=== PATIENT | female | born 1960 | race Caucasian/White ===

== ENCOUNTER 2019-09-29 08:08 | Inpatient (IN) ==
[2019-09-29] MEDS ORDERED: ALBUTEROL 0.083% NEBU SOLN 3 ML VIAL INH PRN (10:55)
[2019-09-29] MEDS ORDERED: LORazepam 0.5 MG TAB PO PRN (10:55)
[2019-09-29] MEDS ORDERED: ONDANSETRON INJ 2 MG/ML 2 ML VIAL IV PRN (10:58)
[2019-09-29] MEDS ORDERED: [UNRECOGNIZED DRUG - OTHER] SCH (11:00)
--- NOTE | 2019-09-29 12:33 | XRay Report ---
SINGLE VIEW CHEST CLINICAL HISTORY: Pneumothorax status post lung biopsy. FINDINGS: An AP, portable, upright chest radiograph is compared to study dated 09/10/2019. Correlation is made with chest CT dated 09/07/2019. The cardiomediastinal silhouette is unremarkable. Emphysema and chronic interstitial thickening are similar to previous. A 2.6 cm nodule is again seen in the lef t lower lobe. No airspace consolidation or pleural effusion is identified. There is a small left apic al pneumothorax with approximately 12 mm of pleural separation. No right-sided pneumothorax is seen. The skeletal structures are osteopenic. There is a healed right-sided rib fracture. IMPRESSION: 1. Emphysema and a left lower lobe pulmonary lesion are similar to previous. 2. There is a small left apical pneumothorax. Electronically signed by: Marcus Quintero M.D. 09/29/2019 12:32 PM
--- NOTE | 2019-09-29 12:49 | CT Scan Report ---
CT guided FNA 1st lesion CLINICAL HISTORY: 2.1 x 1.5 cm solid nodule the super segment left lower lobe. COMPARISON STUDY: Chest CT 09/07/2019. PROCEDURE: The risks, benefits, and alternatives to the procedure were discussed with the patient. Wr itten informed consent was obtained. The patient was placed prone in the CT gantry, and the 2.1 cm n odule within the superior segment left lower lobe was localized with a grid on the skin surface. The skin was then marked. The left upper back was then prepped and draped in the usual sterile fashion. 1 % lidocaine was used for local anesthesia. The nodule was aspirated under CT guidance with 5 total pa sses utilizing 22-gauge spinal needles. After the first pass a tiny postprocedural pneumothorax was v isualized. The patient was asymptomatic. Dr. Dong then entered the CT department and discussion w as made that he would admit the patient and follow her accordingly with management specifically of th e pneumothorax. Dr. Dong and myself discussed with the patient that despite the pneumothorax, add itional FNA passes would be attempted as long as she was asymptomatic. The patient agreed and remaine d asymptomatic throughout the procedure. Specimens were reviewed by the pathologist and the first 4 p asses were prominently bloody material. The fifth pass demonstrated cellular material per pathologist . The patient tolerated the procedure well and left the department in satisfactory condition. The pat ient was then admitted under Dr. Dong and his team. Post procedural images demonstrate a small pneumothorax with small amount of alveolar hemorrhage surr ounding the pulmonary nodule. IMPRESSION: Completed fine-needle aspiration of a 2.1 cm nodule of the superior segment left lower lo be. The above report was generated using voice recognition software. It may contain grammatical, syntax o r spelling errors. Electronically signed by: Orestes Steele M.D. 09/29/2019 12:47 PM
[2019-09-29] MEDS: TRAMADOL HCL 50 MG TABLET PO PRN ×2 (16:17→20:20)
--- NOTE | 2019-09-29 16:28 | History & Physical Report ---
Date of Service September 29, 2019 Assessment & Plan (1) Pleuritic chest pain: Present on Admission?: Yes (2) COPD (chronic obstructive pulmonary disease): Present on Admission?: Yes (3) Iatrogenic pneumothorax: Had a long talk to the patient and her mother. I also discussed this case with Dr. Mahamed Osuna from pathology. I am hopeful that we have a tissue confirmation that this is a non-small cell lung carcinoma. If we do not get a diagnosis to complicate matters. Given the hypermetabolic activity of this mass in her history this certainly appears to be a non-small cell lung carcinoma. I am hopeful we can enroll her in our [employer] trial comparing sublobar resections versus SBRT. She currently does not need a chest tube. If she looks good tomorrow morning we will allow her to go home. Present on Admission?: Yes History of Present Illness Chief Complaint: pneumothorax Primary Care Provider: Michael Muhammad MD Jen Patel is a 59-year-old female with terrible lung function a long history of cigarette smoking who was found to have a hypermetabolic mass in the superior segment of her left lower lobe. She is undergone a work-up and it appears she qualifies for a clinical trial that we have open however we need tissue diagnosis. A navigational bronchoscopy was performed we did not get a tissue diagnosis of the peripheral mass, however her endobronchial ultrasound showed no evidence of metastatic disease in the mediastinal or hilar lymph nodes. Patient was set up for a needle biopsy under CT guidance with the understanding that she may have an iatrogenic pneumothorax because it was intraparenchymal although fairly peripheral. She understood. I explained that we may have to insert a chest tube or admit her. While the patient was in the CT scanner I presented and was there when Dr. Lyons did 5 separate biopsies. We finally got some suspicious cells in the last biopsy specimen. She had a small pneumothorax and I admitted her for observation. Is important to note that this patient has very poor lung function. She is not can to tolerate a pneumothorax of any consequence. We ordered a chest x-ray and this shows it is a small pneumothorax and she is stable clinically. We will continue her oxygen and admit her to the hospital. Had a long talk with the patient and her mother. Allergies Allergy/AdvReac Type Severity Reaction Status Date / Time adhesive Allergy Mild SKIN Verified 09/29/19 08:50 IRRITATION Home Medications Home Medications Medication Instructions Recorded Confirmed Type Oxygen Home #1 ea 06/17/19 09/28/19 History atorvastatin 20 mg tablet 40 mg PO QAM tab 06/17/19 09/29/19 History diclofenac sodium 50 mg 50 mg PO BID tab 06/17/19 09/29/19 History tablet,delayed release duloxetine 30 mg capsule,delayed 30 mg PO QAM cap 06/17/19 09/29/19 History release lorazepam 0.5 mg tablet 0.5 mg PO TID PRN #20 tab 06/17/19 09/29/19 History lorazepam 2 mg tablet 2 mg PO HS 06/17/19 09/29/19 History metformin 500 mg tablet,extended 500 mg PO BID #90 tab 06/17/19 09/29/19 History release 24 hr pantoprazole 40 mg tablet,delayed 40 mg PO QAM #30 tab 06/17/19 09/29/19 History release Trelegy Ellipta 1 inh INHALATION QAM 09/08/19 09/29/19 History ferrous sulfate 325 mg PO BID 09/08/19 09/29/19 History lisinopril 5 mg PO QAM 09/08/19 09/29/19 History metoprolol succinate 12.5 mg PO QAM 09/08/19 09/29/19 History prednisone 10 mg tablet 10 mg PO QAM #90 tab 09/28/19 09/29/19 Rx albuterol sulfate [ProAir HFA] 2 puff INHALATION BID 09/29/19 09/29/19 History bupropion HCl 200 mg PO BID 09/29/19 09/29/19 History Past Med/Surg History Social History (Updated 09/07/19 @ 10:56 by Jelly Marie RN) Preferred Language: Vietnamese Communication Ability: Effective Crosscutter Required: No Beliefs That Will Affect Care: None marital status: Single Current Living Situation: Alone current occupational status: disabled Feels Safe at Home: Yes Smoking Status: Former smoker Tobacco Type: cigarettes ; Age Started Using To bacco: 14 ; Age Quit Using Tobacco: 58 ; packs per day: 1 ; Cigarettes Per Day: 20 ; Number of Years Since Quit: 1 ; Second Hand Exposure: Yes ; Hx Alcohol Use: No Hx Substance Use: No Review of Systems Review of Systems: All systems reviewed & are unremarkable except as noted in HPI & below Patient has complained of chest pain since her CT-guided biopsy of her left lung mass however, her shortness of breath and cough is been unchanged. She is had really no other issues since my history and physical performed a in the last couple of weeks. She is quite anxious about this lung mass. Physical Exam Physical Exam: This is is an anxious appearing female who appears her stated age 59. She is wearing oxygen. She is complaining of pain in her left chest which is pleuritic. She is not hypoxic on 2 L. That is her baseline. She was glasses. Extra documents are intact. Sclera pale but anicteric. She has no new sleep flattening. Tongue is midline. Neck is supple. She has no neck vein distention. She has decreased breath sounds on both sides perhaps a bit more on the left than the right. She has no rub. She has regular treatment of her heart. Abdomen is obese soft nontender. She has no peripheral edema. She has no joint effusions. She has peripheral pulses which are palpable. Neurologically she is completely intact although anxious. Results & Data Vital Signs (Past 12 Hours) Vital Signs Temp Pulse Resp BP Pulse Ox 09/29/19 15:08 36.7 C 83 16 122/79 94 09/29/19 11:45 36.8 C 91 H 18 133/87 93 09/29/19 09:11 142/82 H 97 09/29/19 09:01 36.4 C L 94 H 22 142/82 H 97 Code Status & VTE Plan VTE Prophylaxis Plan VTE Prophylaxis will be ordered: Yes PG Care Time/CCT Total # of Minutes Spent Total Time Spent with Patient: Total time spent is greater than 50% in coordination of care (as documented) at patient's floor/unit and/or counseling patient:
[2019-09-29] MEDS: FERROUS SULFATE 325 MG TAB PO SCH (18:04)
[2019-09-29] MEDS: METFORMIN HCL ER 500 MG TABCR PO SCH (18:04)
[2019-09-29] MEDS: BuPROPion SR 100 MG TABCR PO SCH (20:21)
[2019-09-29] MEDS: DICLOFENAC SODIUM 25 MG TABDR PO SCH (20:21)
[2019-09-29] MEDS ORDERED: LORazepam 1 MG TAB PO SCH (21:00)
[2019-09-29] MEDS: ALBUTEROL HFA 8 GM INHALER INH SCH (21:28)
[2019-09-30] MEDS: TRAMADOL HCL 50 MG TABLET PO PRN ×2 (00:59→07:48)
--- NOTE | 2019-09-30 07:30 | XRay Report ---
XR chest 1V portable CLINICAL HISTORY: 59 years-old Female presenting with pneumothorax. TECHNIQUE: Portable upright AP view of the chest was obtained. COMPARISON: 09/29/2019. FINDINGS: Cardiomediastinal silhouette normal. Breast implants suggested. 2.4 cm nodule in the right midlung leigh spected. This correlates with the nodule in the superior segment of the left lower lobe evident on re cent PET/CT from July. An additional peripheral/subpleural opacity is noted more inferiorly in t he left lower lung, which corresponds with the underlying left lateral eighth rib fracture. No pleura l effusion or pneumothorax. Osseous structures normal. Upper abdomen normal. IMPRESSION: 1. Redemonstration of the superior segment left lower lobe lung nodule. 2. No radiographic evidence of pneumothorax allowing for portable technique. Electronically signed by: Darwin Jackman M.D. 09/30/2019 7:29 AM
[2019-09-30] MEDS: FERROUS SULFATE 325 MG TAB PO SCH (08:48)
[2019-09-30] MEDS: METFORMIN HCL ER 500 MG TABCR PO SCH (08:48)
[2019-09-30] MEDS: DICLOFENAC SODIUM 25 MG TABDR PO SCH (08:50)
[2019-09-30] MEDS: BuPROPion SR 100 MG TABCR PO SCH (08:50)
[2019-09-30] MEDS: ALBUTEROL HFA 8 GM INHALER INH SCH (08:54)
[2019-09-30] MEDS ORDERED: predniSONE 10 MG TABLET PO SCH (09:00)
[2019-09-30] MEDS ORDERED: DULOXETINE HCL 30 MG CAP PO SCH (09:00)
[2019-09-30] MEDS ORDERED: ATORVASTATIN 40 MG TAB PO SCH (09:00)
[2019-09-30] MEDS ORDERED: PANTOprazole 40 MG TAB PO SCH (09:00)
[2019-09-30] MEDS ORDERED: lisinopriL 5 MG TAB PO SCH (09:00)
[2019-09-30] MEDS ORDERED: METOPROLOL SUCC 25MG EXT REL TAB PO SCH (09:00)
[2019-09-30] MEDS ORDERED: ENOXAPARIN INJ 40 MG/0.4 ML SYR SQ SCH (09:00)
--- NOTE | 2019-09-30 10:39 | Discharge Summary ---
Date of Service September 30, 2019 Admission HPI Per Admitting Provider Jen Patel is a 59-year-old female with terrible lung function a long history of cigarette smoking who was found to have a hypermetabolic mass in the superior segment of her left lower lobe. She is undergone a work-up and it appears she qualifies for a clinical trial that we have open however we need tissue diagnosis. A navigational bronchoscopy was performed we did not get a tissue diagnosis of the peripheral mass, however her endobronchial ultrasound showed no evidence of metastatic disease in the mediastinal or hilar lymph nodes. Patient was set up for a needle biopsy under CT guidance with the understanding that she may have an iatrogenic pneumothorax because it was intraparenchymal although fairly peripheral. She understood. I explained that we may have to insert a chest tube or admit her. While the patient was in the CT scanner I presented and was there when Dr. Lyons did 5 separate biopsies. We finally got some suspicious cells in the last biopsy specimen. She had a small pneumothorax and I admitted her for observation. Is important to note that this patient has very poor lung function. She is not can to tolerate a pneumothorax of any consequence. We ordered a chest x-ray and this shows it is a small pneumothorax and she is stable clinically. We will continue her oxygen and admit her to the hospital. Had a long talk with the patient and her mother. Discharge Data Procedures Performed Operation Date: 09/29/19 09:[address] Scan Lung Biopsy - Osvaldo Dong MD, FACS Hospital Course (1) Iatrogenic pneumothorax: (2) COPD (chronic obstructive pulmonary disease): (3) Dependence on continuous supplemental oxygen: (4) Mass of lower lobe of left lung: Jen Patel is a 5-year-old female with very poor lung function who has a hypermetabolic mass in the superior segment of the left lower lobe which appears to be a non-small cell lung carcinoma. Patient is a candidate for a trial of sublobar resections versus SBRT. We have this trial available and are looking to enroll her into it. Navigational bronchoscopy was performed we did not get a diagnosis. And a bronchial ultrasound was performed earlier which showed no evidence of metastatic disease in her mediastinal lymph nodes. A needle biopsy was requested under CT guidance to get a diagnosis. This is required for entrance into this clinical trial. On 09/29/2019 the patient underwent a CT-guided biopsy by Dr. Sebastián Lyons. He did 5 separate passes the patient has small pneumothorax. We are waiting for cells but it appears we may have enough for diagnosis of non-small cell lung carcinoma. Patient had pain with this but it resolved. Her chest x-ray look quite good the following day. We observed her due to her poor lung function. She looked quite good this morning. She was discharged home one day after her biopsy and iatrogenic pneumothorax which was very small. I discussed this with the patient and her mother. I will see her back to go over final pathology and see about enrolling her in the [employer] trial.
== END 2019-09-30 11:00 | disposition home or self-care (01) | DRG 181 ==
LOC: ASU 08:08 → 3W 10:57

== ENCOUNTER 2019-11-22 05:43 | Inpatient (IN) ==
--- NOTE | 2019-11-18 13:26 | Anesthesiology Consultation ---
Date of Service November 18, 2019 Easy intubation for EBUS, Mac3 8.0 ETT. Grade 2 view. Assessment & Plan (1) Encounter for pre-operative examination: Chart Review Chart Review: Acceptable Risk for Surgery and Patient NOT seen in Pre Admission Testing Consults Requested none History Surgery Operation Date: 11/22/19 07:15 Proposed Procedures p Left Video-Assisted Thoracoscopy With Left Lower Lobe Wedge Resection and Lymph Node Biopsy, Possible Left Lower Lobectomy, With Mediastinal Lymphadenectomy - Osvaldo Dong MD, FACS Height/Weight Height: 5 ft 7 in Weight: 84.368 kg Allergies Allergy/AdvReac Type Severity Reaction Status Date / Time adhesive Allergy Mild SKIN Verified 11/18/19 11:02 IRRITATION Medications Home Medications Medication Instructions Recorded Confirmed Last Taken Oxygen Home #1 ea 06/17/19 10/11/19 Unknown atorvastatin 20 mg tablet 40 mg PO QAM tab 06/17/19 11/18/19 11/17/19 06:00 diclofenac sodium 50 mg 50 mg PO BID tab 06/17/19 11/18/19 11/17/19 06:00 tablet,delayed release duloxetine 30 mg capsule,delayed 30 mg PO QAM cap 06/17/19 11/18/19 11/17/19 06:00 release lorazepam 0.5 mg tablet 0.5 mg PO BID PRN #20 tab 06/17/19 11/18/19 11/17/19 06:00 lorazepam 2 mg tablet 2 mg PO HS 06/17/19 11/18/19 11/16/19 20:00 metformin 500 mg tablet,extended 500 mg PO BID #90 tab 06/17/19 11/18/19 11/16/19 06:00 release 24 hr pantoprazole 40 mg tablet,delayed 40 mg PO QAM #30 tab 06/17/19 11/18/19 11/17/19 06:00 release Trelegy Ellipta 1 inh INHALATION QAM 09/08/19 11/18/19 11/17/19 06:00 ferrous sulfate 325 mg PO BID 09/08/19 11/18/19 11/17/19 06:00 lisinopril 5 mg PO QAM 09/08/19 11/18/19 11/17/19 06:00 metoprolol succinate 12.5 mg PO QAM 09/08/19 11/18/19 11/17/19 06:00 prednisone 10 mg tablet 10 mg PO QAM #90 tab 09/28/19 11/18/19 11/17/19 06:00 albuterol sulfate [ProAir HFA] 2 puff INHALATION BID PRN 09/29/19 11/18/19 09/15/19 bupropion HCl 200 mg PO BID 09/29/19 11/18/19 11/17/19 06:00 albuterol sulfate 0.63 mg INHALATION QID 11/18/19 11/18/19 Unknown Past Medical History Medical History Anemia Anxiety and depression Breast cancer RT (RADIATION AND CHEMO) Chronic obstructive pulmonary disease Chronic steroid use "FOR BREATHING" Emphysema of lung Hyperlipidemia Hypertension NO MEDS Lung nodule On home oxygen therapy O2 AT 2L CONT. Prediabetes BORDERLINE-ORAL MEDS Past Family History Family History Father Lung cancer Cancer Stroke Mother Diabetes Family history of diabetes mellitus Grandmother Diabetes Aunt Cancer Grandmother (Maternal) Family history of diabetes mellitus Other Breast cancer Past Surgical History Surgical History H/O breast reconstruction RT BREAST History of appendectomy History of breast biopsy History of cardiac cath 6 YRS AGO? [facility] NO STENTS NEEDED-F/U PCP History of colonoscopy History of esophagogastroduodenoscopy (EGD) History of hysterectomy TOTAL History of mastectomy RT WITH RECONSTRUCTION History of tooth extraction Hx laparoscopic cholecystectomy S/P bronchoscopy with biopsy (09/13/19) 1. Endobronchial ultrasound with biopsy for staging. 2. Navigational bronchoscopy with biopsy. Dr. Dong 09/10/19 S/P hernia surgery ABDOMINAL HERNIA (3 SURGERIES) Social History Smoking Status: Former smoker tobacco type: cigarettes Smoking cigarettes per day: 20 Do You Dip or Chew Tobacco: No Smoking End Date: QUIT 07/21/18 Hx Alcohol Use: No Hx Substance Use: No substance use type: does not use Testing Laboratory Results Laboratory Tests 09/20/19 11/17/19 11/17/19 08:16 08:41 08:41 WBC 9.91 Hgb 12.6 Hct 39.2 Plt Count 303 PT 10.2 INR 1.0 APTT 11/17/19 08:41 WBC Hgb Hct Plt Count PT INR APTT 22.5 Electrocardiogram Date: 09/10/19 Findings: + NSR @ and + NSST changes Chest X-Ray Date: 11/17/19 Small L apical PNX (post biopsy)
[2019-11-22] MEDS ORDERED: LR 15ML/HR IV SCH (06:00)
[2019-11-22] MEDS ORDERED: SUCCINYLCHOLINE CHLORIDE 20 MG/ML 10 ML VIAL ONE (06:21)
[2019-11-22] MEDS ORDERED: fentaNYL citrate 100 MCG/2 ML VIAL ONE (06:21)
[2019-11-22] MEDS ORDERED: CISATRACURIUM BESYLATE IV SOLN 2 MG/ML 10 ML VIAL IV ONE (06:21)
[2019-11-22] MEDS ORDERED: DEXAMETHASONE SOD INJ 4 MG/ML VIAL ONE (06:21)
[2019-11-22] MEDS ORDERED: PROPOFOL IV EMULSION 10 MG/ML 20 ML VIAL IV ONE (06:21)
[2019-11-22] MEDS ORDERED: LIDOCAINE HCL 2% 2 ML VIAL/AMP(20MG/ML) INFIL ONE (06:21)
[2019-11-22] MEDS ORDERED: MIDAZOLAM HCL 1 MG/ML 2ML VIAL ONE (06:21)
[2019-11-22] MEDS ORDERED: ONDANSETRON INJ 2 MG/ML 2 ML VIAL ONE (06:21)
[2019-11-22] MEDS ORDERED: BUPIVACAINE 0.5 % 5 MG/1 ML MPF 30ML VIAL ONE (06:54)
[2019-11-22] MEDS ORDERED: SODIUM CHLORIDE 0.9% PF 50 ML VIAL ONE ×2 (06:54→06:56)
[2019-11-22] MEDS ORDERED: SODIUM CHLORIDE 0.9% INJ 10 ML VIAL ONE (06:54)
[2019-11-22] MEDS ORDERED: BUPIVACAINE LIPOSOME 1.3% 266 MG/20 ML VIAL ONE (06:54)
--- NOTE | 2019-11-22 07:23 | History & Physical Report ---
Date of Service November 22, 2019 Assessment & Plan (1) Mass of lower lobe of left lung: We have discussed this multiple times. She is nervous about it would like it removed and I feel we are dealing with a probable non-small cell lung carcinoma. Unfortunately we could not get a diagnosis. For this reason I would proceed with a sublobar resection today. We have discussed risks and benefits including not limited to, increasing oxygen dependence, increasing dyspnea on exertion, pneumonias, lung injuries, prolonged air leaks, deep vein thromboses, and infections. She understands. Present on Admission?: Yes History of Present Illness Primary Care Provider: Michael Muhammad MD Jen is a 59-year-old ex-smoker who had a history of breast cancer which was treated many years ago. She quit smoking 3 years ago. She was found to have a hypermetabolic mass in the superior segment of left lower lobe which is grown. We worked her up extensively including pulmonary function studies which show that she is compromised. She is on oxygen but is physically active. She underwent a needle biopsy this mass twice and also underwent a navigational bron choscopy with biopsy. Unfortunately, we never got a tissue diagnosis. We had wanted to enroll her in a clinical trial comparing sublobar resections to SBRT in patients with compromised lung function however, despite 3 separate biopsies were unable to get tissue which was required for the study. For this reason I elected to proceed with a wedge resection. She will not tolerate a lobectomy but will do a wide resection and perhaps a segmentectomy. To do lymph node dissection. I discussed this in detail with the patient and her family including her mother. I talked about this again today. Allergies Allergy/AdvReac Type Severity Reaction Status Date / Time adhesive Allergy Mild SKIN Verified 11/22/19 06:08 IRRITATION Home Medications Home Medications Medication Instructions Recorded Confirmed Type Oxygen Home #1 ea 06/17/19 10/11/19 History atorvastatin 20 mg tablet 40 mg PO QAM tab 06/17/19 11/22/19 History diclofenac sodium 50 mg 50 mg PO BID tab 06/17/19 11/22/19 History tablet,delayed release duloxetine 30 mg capsule,delayed 30 mg PO QAM cap 06/17/19 11/18/19 History release lorazepam 0.5 mg tablet 0.5 mg PO BID PRN #20 tab 06/17/19 11/22/19 History lorazepam 2 mg tablet 2 mg PO HS 06/17/19 11/22/19 History metformin 500 mg tablet,extended 500 mg PO BID #90 tab 06/17/19 11/22/19 History release 24 hr pantoprazole 40 mg tablet,delayed 40 mg PO QAM #30 tab 06/17/19 11/22/19 History release Trelegy Ellipta 1 inh INHALATION QAM 09/08/19 11/22/19 History ferrous sulfate 325 mg PO BID 09/08/19 11/22/19 History lisinopril 5 mg PO QAM 09/08/19 11/22/19 History metoprolol succinate 12.5 mg PO QAM 09/08/19 11/22/19 History prednisone 10 mg tablet 10 mg PO QAM #90 tab 09/28/19 11/18/19 Rx albuterol sulfate [ProAir HFA] 2 puff INHALATION BID PRN 09/29/19 11/18/19 History bupropion HCl 200 mg PO BID 09/29/19 11/18/19 History albuterol sulfate 0.63 mg INHALATION QID 11/18/19 11/22/19 History Past Med/Surg History Medical History Anemia Anxiety and depression Breast cancer RT (RADIATION AND CHEMO) Chronic obstructive pulmonary disease Chronic steroid use "FOR BREATHING" Emphysema of lung Hyperlipidemia Hypertension NO MEDS Lung nodule On home oxygen therapy O2 AT 2L CONT. Prediabetes BORDERLINE-ORAL MEDS Surgical History H/O breast reconstruction RT BREAST History of appendectomy History of breast biopsy History of cardiac cath 6 YRS AGO? [facility] [place] NO STENTS NEEDED-F/U PCP History of colonoscopy History of esophagogastroduodenoscopy (EGD) History of hysterectomy TOTAL History of mastectomy RT WITH RECONSTRUCTION History of tooth extraction Hx laparoscopic cholecystectomy S/P bronchoscopy with biopsy (09/13/19) 1. Endobronchial ultrasound with biopsy for staging. 2. Navigational bronchoscopy with biopsy. Dr. 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 Beliefs That Will Affect Care: None marital status: Single Current Living Situation: Alone current occupational status: disabled Other Information That Helps Us Care for You: No Feels Safe at Home: Yes Safety Concerns: Feels Safe At This Time Smoking Status: Former smoker Tobacco Type: cigarettes ; Age Started Using Tobacco: 14 ; Age Quit Using Tobacco: 58 ; packs per day: 1 ; Cigarettes Per Day: 20 ; Do You Dip or Chew Tobacco: No ; Smoking End Date: QUIT 07/21/18 ; Number of Years Since Quit: 1 ; Second Hand Exposure: Yes (FAMILY) ; Hx Alcohol Use: No Hx Substance Use: No Review of Systems Review of Systems: All systems reviewed & are unremarkable except as noted in HPI & below The patient tolerated her needle biopsy well last week. She has small pneumothorax but it did not enlarge and she was not compromised from a respiratory standpoint although she did have pain the evening afterwards. This is resolved. She will cough up some white sputum on occasion. She is had no night sweats or fevers. She is had no weight loss. She denies any visual auditory symptoms although she does wear glasses. She has had no neurologic symptoms signs or symptoms. Is had no palpitations or chest pain or any cardiac symptoms. She has dyspnea on exertion but no hemoptysis. She is had no GI or complaints. She said no peripheral edema. S of her review of systems is unremarkable. Physical Exam Physical Exam: This is a heavyset well-developed female who wears glasses. She appears her stated age of 59. She is wearing supplemental oxygen is 98% saturation of 2 L. Extraocular meds are intact. Pupils are equally round react. Sclera anicteric. Tongue is midline. She has no oral mucosal lesions. Her neck is thick but supple. She has no neck vein distention or tracheal deviation and she has no adenopathy which is palpable. She does have decreased breath sounds but no wheezing this morning. She has a regular rate and rhythm of her heart. She has well-healed mastectomy incisions. Abdomen is obese but soft nontender. She has no peripheral edema and has good peripheral pulses with no joint effusions. Neurologically she is completely intact. Results & Data Vital Signs (Past 12 Hours) Vital Signs Temp Pulse Resp BP Pulse Ox 11/22/19 06:37 36.4 C L 100 H 20 134/96 96 PG Care Time/CCT Total # of Minutes Spent Total Time Spent with Patient: Total time spent is greater than 50% in coordination of care (as documented) at patient's floor/unit and/or counseling patient:
[2019-11-22] MEDS ORDERED: CEFAZOLIN 250 MG/ML 1 GM VIAL ONE (08:04)
[2019-11-22] MEDS ORDERED: HYDROCORTISONE SOD SUCCINATE 100 MG/2 ML VIAL ONE (08:22)
[2019-11-22] MEDS ORDERED: HYDROmorphone INJ 1 MG/ML SYRINGE IV PRN (08:30)
[2019-11-22] MEDS ORDERED: PROMETHAZINE HCL 12.5 MG in SODIUM CHLORIDE 0.9% 50 ML IV PRN (08:30)
[2019-11-22] MEDS ORDERED: ePHEDrine sulfate 50 MG/ML AMP IV PRN (08:30)
[2019-11-22] MEDS ORDERED: ONDANSETRON INJ 2 MG/ML 2 ML VIAL IV PRN ×2 (08:30→11:59)
[2019-11-22] MEDS ORDERED: FLUMAZENIL 0.1 MG/1 ML 10 ML VIAL IV PRN (08:30)
[2019-11-22] MEDS ORDERED: LABETALOL HCL IV 5 MG/ML 20ML IV PRN (08:30)
[2019-11-22] MEDS ORDERED: ATROPINE SULFATE 0.1 MG/ML 10ML SYR IV PRN (08:30)
[2019-11-22] MEDS ORDERED: NALOXONE HCL 0.4 MG/1 ML VIAL/CARP IV PRN (08:30)
[2019-11-22] MEDS ORDERED: ePHEDrine sulfate 50 MG/ML SYR ONE (08:32)
--- NOTE | 2019-11-22 10:08 | Operative Report ---
PG Post Operative Report Pre & Post Diagnosis Operation Date: 11/22/19 07:15 Pre-Op Diagnosis: Left Lower Lobe Lung Mass Post-Op Diagnosis: Left Lower Lobe carcinoma I identified the patient and participated in the time-out.: Yes Procedure Operation Date: 11/22/19 07:15 Actual Procedures p Left Video-Assisted Thoracoscopy With Left Lower Lobe Wedge Resection And Lymph Node Biopsy(Left) - Osvaldo Dong MD, FACS Surgeon Osvaldo Dong MD, FACS Behaviorist Sarah ANTOINE Estimated Blood Loss 20 Findings Consistent with Post-Op Diagnosis Specimens Small wedge left upper lobe. Wedge resection left lower lobe superior segment x2. Lymph node biopsy level 7, left level 9, left level 10. Drains 4 Marshallese chest tube Anesthesia Type General Complications none Disposition Accompanied Patient To Recovery: Yes Disposition: Recovery Room Description of Procedure This 59-year-old female with a history of breast cancer and a long history of cigarette smoking has oxygen dependent chronic obstructive pulmonary disease with compromised lung function. She is found to have a mass in the superior segment of her left lower lobe. I wanted to randomizes patient to a clinical trial and performed an endobronchial ultrasound which showed no evidence of mediastinal spread and also did a navigational bronchoscopy but we did not get a diagnosis. We then had a fine-needle aspiration under CT guidance and the cells were quite suspicious and in fact we sought outside consultation on these slides and again we did not get a diagnosis. We finally did a third CT-guided biopsy with a core needle however in both of her CT-guided biopsy she suffered a pneumothorax. The mass was enlarging and we did not get a diagnosis. I elected to perform an excisional biopsy. She would not tolerate a lobectomy. On 11/22/2019 the patient was brought to the operating room and underwent an uncomplicated left thoracoscopy. We wedged out a small segment of the left upp er lobe which was attached to adhesions. We then wedged out a segment of the left lower lobe superior segment and then another larger left lower lobe segment. The mass was palpable and appeared to be surrounded by parenchyma. While waiting for the frozen section of this I took down the infrapulmonary ligament found a left level 9 node which was small. Also biopsied the level 7 nodes was a level 10 node anteriorly. I really did not see much in the AP window where level 6 area. I went and reviewed the specimens and it appeared we had a small margin at 1 of the staple line so I went back and re-resected that with another staple line. She tolerated well with essentially no blood loss and very little in the way of an air leak at the conclusion. She tolerated it well. Procedure the patient was brought to the operating room and laid in the supine position. General anesthesia was induced and endotracheal intubation was performed with a double- lumen tube. Patient was turned in the right lateral decubitus addition her left chest was prepped and draped in usual sterile fashion. After appropriate timeout had been called and appropriate prophylactic antibiotics given a 5 mm incision was placed anterior and then another 1 was placed posterior and we saw that there were adhesions of the super centimeter left upper lobe to the chest wall but they were flimsy. We placed a 12 mm port further down a bit anterior to the midaxillary line and then using a harmonic scalpel we took down these adhesions easily. The superior segment of the lower lobe and the upper lobe were adhesed and I used an Endo MILKA stapler to separate them removed a small segment of the left upper lobe. We then wedged out a generous portion of the super segment of the lower lobe however I did not palpate the mass. Grasping further down I then did a another generous wedge and removed a portion of lung and I could easily palpate the mass that appeared to be surrounded by parenchyma. This was sent to the lab and indeed this is a carcinoma. While waiting for this frozen section I took down the infrapulmonary ligament with a harmonic scalpel and removed a level 9 node which is small. We also biopsy a level 7 node after dissecting a posterior hilum a bit more. We took this pleural dissection around anteriorly and dissected out a level 10 node. I went down the lab and reviewed the specimen and it was just a few millimeters along the staple lines I went back and took off another segment of staple line with a stapler. This was a true margin. There was no masses in this. We had performed a block using Exparel. A total of 266 mg of the Exparel in 20 cc of solution were mixed with 30 cc of 0.5% Marcaine and 250 cc of normal saline. This was injected into each of the 3 port sites. We also used this to do an intercostal block from the second to the 12th rib under thoracoscopic guidance. We placed a 24 Marshallese chest tube directed towards the apex and held in place with heavy silk suture. The deeper layers of the larger port were closed with 0 Vicryl and the 4 Monocryl was used in running septic layer fashion approximate the wound edges. She was extubated in the room. She tolerated this procedure quite well. She was transferred to the postanesthesia care unit in stable condition. I attest to the content of the Intraoperative Record and any orders documented therein. Any exceptions are noted below.
[2019-11-22] MEDS ORDERED: CEFAZOLIN 2000MG 2,000 MG/15 ML SYR IV ONE (10:11)
[2019-11-22] MEDS ORDERED: METOCLOPRAMIDE HCL INJ 5 MG/ML 2 ML VIAL IV ONE (10:20)
[2019-11-22] MEDS ORDERED: GLYCOPYRROLATE 0.2 MG/ML VIAL ONE (10:26)
[2019-11-22] MEDS ORDERED: NEOSTIGMINE METHYLSULFATE 5 MG/5 ML SYR ONE (10:26)
[2019-11-22] MEDS ORDERED: ALBUTEROL HFA INHALER 8.5 GM ONE (10:26)
--- NOTE | 2019-11-22 10:43 | XRay Report ---
XR chest 1V portable CLINICAL HISTORY: 59 years-old Female presenting with left lung wedge. TECHNIQUE: Portable upright AP view of the chest was obtained. COMPARISON: 11/17/2019. FINDINGS: Large bore left pleural drain positioned at the left upper lung. Associated soft tissue emphysema efra ng the left lateral chest wall. Cardiomediastinal silhouette normal. Allowing for portable technique, no demonstrable pneumothorax is appreciated. Minimal added density of the left lung in comparison to the right likely postsurgical change. Focal rounded opacity in the left midlung. Suture margin is ma y be present in the left perihilar region/left midlung. Right lung and pleural space clear. Osseous s tructures normal. Upper abdomen normal. IMPRESSION: 1. No demonstrable pneumothorax allowing for portable technique. 2. Left pleural drain in place. 3. Postsurgical changes of the left lung. The apparent rounded opacity in the left midlung may repre sent a pseudomass with fluid in the major fissure. Attention on follow-up. ACT 112: Negative or not required by law. Electronically signed by: Darwin Jackman M.D. 11/22/2019 10:42 AM
[2019-11-22] MEDS: fentaNYL citrate 100 MCG/2 ML VIAL IV PRN ×4 (10:48→11:03)
--- NOTE | 2019-11-22 11:22 | Anesthesiology Progress Note ---
Date of Service November 22, 2019 Anesthesia Post Procedure Vital Signs Vital Signs: Temp Pulse Pulse Resp BP Pulse Ox 11/22/19 11:15 37.0 C 98 H 19 119/63 94 11/22/19 11:05 37.0 C 99 H 21 109/67 95 11/22/19 10:55 89 19 115/82 99 11/22/19 10:45 92 H 20 119/74 99 11/22/19 10:35 98 H 22 108/52 L 100 11/22/19 10:25 98 H 16 101/77 100 11/22/19 10:19 36.1 C L 98 H 16 137/86 100 11/22/19 06:37 36.4 C L 100 H 20 134/96 96 Pain Intensity Back: Pain Intensity: 2 Transfer of Care Handoff Completed per policy Notes Mental Status: alert / awake / arousable Patient Amnestic to Procedure: Yes Nausea / Vomiting: adequately controlled Pain: adequately controlled Airway Patency, RR, SpO2: stable & adequate BP & HR: stable & adequate Hydration State: stable & adequate Anesthetic Complications: no major complications apparent
[2019-11-22] MEDS ORDERED: ALBUTEROL HFA INHALER 8.5 GM INH PRN (12:14)
[2019-11-22] MEDS: SODIUM CHLORIDE 0.9% 1000ML 1,000 ML IV SCH (12:30)
[2019-11-22] MEDS: ACETAMINOPHEN 1,000 MG/100 ML VIAL IV SCH ×2 (12:51→19:54)
[2019-11-22] MEDS: INSULIN ASPART 100 UNITS/ML 3 ML PEN SC SCH ×3 (13:39→21:20)
[2019-11-22] MEDS ORDERED: COUGH DROP (SUGAR FREE) LOZ 24 LOZ/1 BOX BUCCAL ONE (15:54)
[2019-11-22] MEDS: OXYCODONE HCL IR 5 MG TAB (IMMEDIATE RELEASE) PO PRN ×2 (15:54→22:16)
[2019-11-22] MEDS: ALBUTEROL 0.5% NEB SOLN 2.5 MG/0.5 ML VIAL INH SCH ×2 (16:02→20:49)
[2019-11-22] MEDS: METOCLOPRAMIDE HCL INJ 5 MG/ML 2 ML VIAL IV SCH (18:21)
[2019-11-22] MEDS: MoRPHine SULFATE 2 MG/ML CARP IV PRN (18:22)
[2019-11-22] MEDS: DOCUSATE SODIUM 100 MG CAP PO SCH (20:59)
[2019-11-22] MEDS: BuPROPion SR 100 MG TABCR PO SCH (20:59)
[2019-11-22] MEDS: FERROUS SULFATE 325 MG TAB PO SCH (20:59)
[2019-11-22] MEDS: LORazepam 1 MG TAB PO SCH (20:59)
[2019-11-23] MEDS: MoRPHine SULFATE 2 MG/ML CARP IV PRN ×4 (00:04→21:10)
[2019-11-23] MEDS: METOCLOPRAMIDE HCL INJ 5 MG/ML 2 ML VIAL IV SCH (01:45)
[2019-11-23] MEDS: SODIUM CHLORIDE 0.9% 1000ML 1,000 ML IV SCH (01:46)
[2019-11-23] MEDS: ACETAMINOPHEN 1,000 MG/100 ML VIAL IV SCH (03:56)
[2019-11-23] MEDS: ALBUTEROL 0.5% NEB SOLN 2.5 MG/0.5 ML VIAL INH SCH ×2 (07:06→11:03)
--- NOTE | 2019-11-23 07:25 | XRay Report ---
XR chest 1V portable CLINICAL HISTORY: Postop left-sided lung wedge resection COMPARISON STUDY: 11/22/2019 FINDINGS: The cardiac and mediastinal contours remain stable. There is a left-sided chest tube. There is a trace left apical pneumothorax. There is no focal pulmonary consolidation. There are minimal le ft midlung zone atelectatic changes.[ IMPRESSION: Postsurgical changes status post left lower lobe pulmonary wedge resection. Trace left ap ical pneumothorax. ACT 112: Negative or not required by law. Electronically signed by: Som Krishnan M.D. 11/23/2019 7:23 AM
--- NOTE | 2019-11-23 07:52 | Surgery Progress Note ---
Date of Service November 23, 2019 Assessment & Plan (1) Non-small cell cancer of lower lobe of lung: Present on Admission?: Yes (2) Status post lung surgery: Jen looks very good today. She is only on 2 L with 96% saturations. Her lungs are clear. She has a very tiny intermittent air leak with very little in the way of drainage. Her x-ray looks quite good. She is been ambulating in the hallway and tolerating p.o. well. She has been urinating well although she did have a bit of difficulty initially postop. She looks very good today. We will stop her IV and ambulate her more. More than likely we will be able to remove her tube and hopefully get her out of the hospital tomorrow. Present on Admission?: No Subjective "I am having a lot of pain". Results & Data Vital Signs (Past 12 Hours) Vital Signs Temp Pulse Resp BP Pulse Ox Pulse Ox 11/23/19 07:42 96 11/23/19 07:08 100 H 19 96 11/23/19 04:00 36.6 C 98 H 18 137/84 94 11/23/19 00:00 36.8 C 96 H 16 154/91 H 96 11/22/19 22:00 36.6 C 94 H 18 144/79 H 94 11/22/19 20:50 120 H 18 93 11/22/19 20:02 36.9 C 94 H 18 133/77 94 PG Care Time/CCT Total # of Minutes Spent Total Time Spent with Patient: Total time spent is greater than 50% in coordination of care (as documented) at patient's floor/unit and/or counseling patient:
--- NOTE | 2019-11-23 08:06 | Anesthesiology Progress Note ---
Date of Service November 23, 2019 Anesthesia Post Procedure Vital Signs Vital Signs: Temp Pulse Pulse Resp BP Pulse Ox Pulse Ox 11/23/19 07:42 96 11/23/19 07:08 100 H 19 96 11/23/19 04:00 36.6 C 98 H 18 137/84 94 11/23/19 00:00 36.8 C 96 H 16 154/91 H 96 11/22/19 22:00 36.6 C 94 H 18 144/79 H 94 11/22/19 20:50 120 H 18 93 11/22/19 20:02 36.9 C 94 H 18 133/77 94 11/22/19 16:59 36.7 C 109 H 20 125/79 94 11/22/19 16:57 37.1 C 105 H 18 153/88 H 93 11/22/19 16:02 109 H 20 96 11/22/19 16:00 36.5 C 101 H 20 134/85 97 11/22/19 14:40 36.7 C 102 H 18 126/80 95 11/22/19 13:43 36.7 C 102 H 18 119/73 94 11/22/19 12:42 36.7 C 109 H 18 124/81 92 11/22/19 12:00 36.7 C 105 H 16 120/80 92 11/22/19 11:45 36.6 C 97 H 16 114/72 92 11/22/19 11:15 37.0 C 98 H 19 119/63 94 11/22/19 11:05 37.0 C 99 H 21 109/67 95 11/22/19 10:55 89 19 115/82 99 11/22/19 10:45 92 H 20 119/74 99 11/22/19 10:35 98 H 22 108/52 L 100 11/22/19 10:25 98 H 16 101/77 100 11/22/19 10:19 36.1 C L 98 H 16 137/86 100 Pain Intensity Back: Pain Intensity: 6 Left Chest: Pain Intensity: 4 Transfer of Care Handoff Completed per policy Notes Mental Status: alert / awake / arousable Patient Amnestic to Procedure: Yes Nausea / Vomiting: adequately controlled Pain: adequately controlled Anesthetic Complications: no major complications apparent and Pt Satisfied with anesthetic care
[2019-11-23] MEDS: METOPROLOL SUCC 25MG EXT REL TAB PO SCH (08:23)
[2019-11-23] MEDS: BuPROPion SR 100 MG TABCR PO SCH ×2 (08:23→20:55)
[2019-11-23] MEDS: lisinopriL 5 MG TAB PO SCH (08:23)
[2019-11-23] MEDS: DULOXETINE HCL 30 MG CAP PO SCH (08:24)
[2019-11-23] MEDS: DOCUSATE SODIUM 100 MG CAP PO SCH ×2 (08:24→20:55)
[2019-11-23] MEDS: FERROUS SULFATE 325 MG TAB PO SCH ×2 (08:24→20:56)
[2019-11-23] MEDS: PANTOprazole 40 MG TAB PO SCH (08:24)
[2019-11-23] MEDS: predniSONE 10 MG TABLET PO SCH (08:24)
[2019-11-23] MEDS: ATORVASTATIN 40 MG TAB PO SCH (08:24)
[2019-11-23] MEDS: ENOXAPARIN INJ 40 MG/0.4 ML SYR SQ SCH (08:25)
[2019-11-23] MEDS: ACETAMINOPHEN 325 MG TAB PO SCH ×3 (08:27→20:59)
[2019-11-23] MEDS: INSULIN ASPART 100 UNITS/ML 3 ML PEN SC SCH ×4 (08:44→22:02)
[2019-11-23 08:58] LABS: Creatinine Clr Calc Pharmacy 102.4 ml/min; Est GFR (African American) 111.8; Est GFR (Non-African American) 96.5
[2019-11-23] MEDS ORDERED: NON-FORMULARY MEDICATION (Fluticasone-Umeclidin-Vilanter [Trelegy Ellipta] 1 PUFFS) INH SCH (09:00)
[2019-11-23] MEDS ORDERED: FLUTICASONE FUROATE 100MCG 14 PUFFS/INHALER INH ONE (13:52)
[2019-11-23] MEDS: ALBUTEROL 0.083% NEBU SOLN 3 ML VIAL NEB SCH ×2 (15:18→20:02)
[2019-11-23] MEDS: OXYCODONE HCL IR 5 MG TAB (IMMEDIATE RELEASE) PO PRN (16:54)
[2019-11-23] MEDS: LORazepam 1 MG TAB PO SCH (20:59)
[2019-11-24] MEDS: OXYCODONE HCL IR 5 MG TAB (IMMEDIATE RELEASE) PO PRN ×3 (00:06→19:36)
[2019-11-24] MEDS: ACETAMINOPHEN 325 MG TAB PO SCH ×4 (02:56→21:09)
--- NOTE | 2019-11-24 07:27 | XRay Report ---
XR chest 1V portable HISTORY: 59 years-old Female s/p wedge resetion status post wedge resection of the left lung COMPARISON: Chest radiograph 11/23/2019 TECHNIQUE: Portable AP view of the chest FINDINGS: Cardiac mediastinal and hilar silhouettes are unchanged. Surgical suture material of the left perihil ar lung. A left-sided chest tube is noted with distal tip terminating adjacent to the left suprahilar distribution. There is a small left-sided pneumothorax with pleural separation at the left lung apex measuring 11 mm. Emphysema with hyperinflation. Mild chronic interstitial coarsening. No large pleur al effusion or overt pulmonary edema. Degenerative changes of the shoulders and spine. IMPRESSION: Postoperative changes of the left midlung with stable positioning of the left-sided chest tube. There is a tiny left apical pneumothorax. ACT 112: Negative or not required by law. The above report was generated using voice recognition software. It may contain grammatical, syntax o r spelling errors. Electronically signed by: Orestes Steele M.D. 11/24/2019 7:26 AM
[2019-11-24] MEDS: ALBUTEROL 0.083% NEBU SOLN 3 ML VIAL NEB SCH ×4 (07:30→19:31)
[2019-11-24] MEDS: BuPROPion SR 100 MG TABCR PO SCH ×2 (08:43→21:06)
[2019-11-24] MEDS: lisinopriL 5 MG TAB PO SCH (08:43)
[2019-11-24] MEDS: METOPROLOL SUCC 25MG EXT REL TAB PO SCH (08:43)
[2019-11-24] MEDS: FERROUS SULFATE 325 MG TAB PO SCH ×2 (08:43→21:06)
[2019-11-24] MEDS: FLUTICASONE FUROATE 100MCG 14 PUFFS/INHALER INH SCH (08:44)
[2019-11-24] MEDS: predniSONE 10 MG TABLET PO SCH (08:44)
[2019-11-24] MEDS: UMECLIDINIUM/VILANTEROL 62.5/25MCG 7 PUFFS/INHALER INH SCH (08:44)
[2019-11-24] MEDS: DOCUSATE SODIUM 100 MG CAP PO SCH ×2 (08:44→21:06)
[2019-11-24] MEDS: ATORVASTATIN 40 MG TAB PO SCH (08:44)
[2019-11-24] MEDS: DULOXETINE HCL 30 MG CAP PO SCH (08:44)
[2019-11-24] MEDS: ENOXAPARIN INJ 40 MG/0.4 ML SYR SQ SCH (08:45)
[2019-11-24] MEDS: PANTOprazole 40 MG TAB PO SCH (08:45)
[2019-11-24] MEDS: INSULIN ASPART 100 UNITS/ML 3 ML PEN SC SCH ×4 (08:48→21:39)
[2019-11-24] MEDS: MoRPHine SULFATE 2 MG/ML CARP IV PRN ×2 (12:16→17:58)
[2019-11-24] MEDS: LORazepam 0.5 MG TAB PO PRN (12:19)
[2019-11-24] MEDS: LORazepam 1 MG TAB PO SCH (21:06)
[2019-11-25] MEDS: ACETAMINOPHEN 325 MG TAB PO SCH ×4 (02:07→20:22)
[2019-11-25] MEDS: ALBUTEROL 0.083% NEBU SOLN 3 ML VIAL NEB SCH ×4 (07:46→19:15)
[2019-11-25] MEDS: BuPROPion SR 100 MG TABCR PO SCH ×2 (07:50→20:19)
[2019-11-25] MEDS: DOCUSATE SODIUM 100 MG CAP PO SCH ×2 (07:51→20:19)
[2019-11-25] MEDS: DULOXETINE HCL 30 MG CAP PO SCH (07:51)
[2019-11-25] MEDS: ATORVASTATIN 40 MG TAB PO SCH (07:51)
[2019-11-25] MEDS: predniSONE 10 MG TABLET PO SCH (07:51)
[2019-11-25] MEDS: FLUTICASONE FUROATE 100MCG 14 PUFFS/INHALER INH SCH (07:52)
[2019-11-25] MEDS: UMECLIDINIUM/VILANTEROL 62.5/25MCG 7 PUFFS/INHALER INH SCH (07:52)
[2019-11-25] MEDS: FERROUS SULFATE 325 MG TAB PO SCH ×2 (07:52→20:19)
[2019-11-25] MEDS: LORazepam 0.5 MG TAB PO PRN (07:55)
[2019-11-25] MEDS: ENOXAPARIN INJ 40 MG/0.4 ML SYR SQ SCH (07:56)
[2019-11-25] MEDS: PANTOprazole 40 MG TAB PO SCH (07:56)
[2019-11-25] MEDS: METOPROLOL SUCC 25MG EXT REL TAB PO SCH (08:05)
[2019-11-25] MEDS: lisinopriL 5 MG TAB PO SCH (08:05)
--- NOTE | 2019-11-25 08:07 | XRay Report ---
XR chest 1V portable CLINICAL HISTORY: 59 years-old Female presenting with lung resection. TECHNIQUE: Portable upright AP view of the chest was obtained. COMPARISON: 11/24/2019. FINDINGS: Large bore left pleural drain terminates in the paramediastinal left mid lung. Suture margins project over the left mid lung. Cardiomediastinal silhouette normal. Architectural distortion of the left xiang ng base. Minimal irregular linear opacities in the periphery of the left mid lung. Persistent tiny le ft apical pneumothorax suspected. Trace left pleural effusion may also be present. Osseous structures normal. IMPRESSION: 1. Post-surgical changes of the left lung. 2. Left pleural drain in place. Trace left apical pneumothorax may be present. ACT 112: Negative or not required by law. Electronically signed by: Darwin Jackman M.D. 11/25/2019 8:06 AM
--- NOTE | 2019-11-25 08:34 | Progress Note ---
DATE: 11/24/2019 Jen was seen today. She still has a tiny air leak. I reviewed her pathology and her nodes are negative. This was a nonsmall cell lung carcinoma with clean margins. She is a stage I. We will discuss her at [facility], but I believe that we will simply watch her with observation. She is back down to 2 liters, which is what she came in on. She has been ambulating in the hallway. It is important to note this patient suffers from chronic hypoxia and had some exacerbation of this upon after her surgery; however, she is quickly recovered. Hopefully, her chest tube can be removed tomorrow. She can be discharged. I am a bit reticent to remove her chest tube in the phase of a possible small pneumothorax, which could prove problematic in this patient with compromised lung function.
[2019-11-25] MEDS: INSULIN ASPART 100 UNITS/ML 3 ML PEN SC SCH ×4 (09:00→21:25)
--- NOTE | 2019-11-25 09:51 | XRay Report ---
XR chest 1V portable CLINICAL HISTORY: chest tube clamped PNEUMOTHORAX COMPARISON STUDY: 11/25/2019 FINDINGS: The cardiac and mediastinal contours remain stable. There is no change in the position of t he left-sided chest tube. There is interval increase in size of a left apical pneumothorax which has a pleural separation of 2 cm.[There is no failure. There is no focal pulmonary consolidation. There i s minor left basilar atelectasis. IMPRESSION: 1. Interval increase in the size of a left pneumothorax status post chest tube clamping. ACT 112: Negative or not required by law. Electronically signed by: Som Krishnan M.D. 11/25/2019 9:50 AM
[2019-11-25] MEDS: OXYCODONE HCL IR 5 MG TAB (IMMEDIATE RELEASE) PO PRN ×2 (15:25→21:13)
--- NOTE | 2019-11-25 18:01 | Progress Note ---
DATE: 11/25/2019 Jen looks great. She has been ambulating in the hallway. She is moving her bowels. She is eating. She is on her 2 liters with good saturations. She has no real complaints except for the chest tube. I was going to pull her chest tube out, but she had a very tiny leak earlier this morning, so I clamped it and saw her back at midday after her tube had been clamped for a few hours. She had a small pneumothorax apically, so as it was enlarging I put her back on waterseal after unclamping her tube. She is not quite ready to have this chest tube out yet. She understands. We reviewed her pathology and were quite pleased. She will not need adjuvant therapy, but we will need to follow her closely as she had a suboptimal resection. She understands. Hopefully, we will get her out of the hospital in the next day or two.
[2019-11-25] MEDS: LORazepam 1 MG TAB PO SCH (20:23)
[2019-11-26] MEDS: ACETAMINOPHEN 325 MG TAB PO SCH ×3 (02:18→14:36)
[2019-11-26 06:45] LABS: Creatinine Clr Calc Pharmacy 86.5 ml/min; Est GFR (African American) 97.3; Est GFR (Non-African American) 83.9
[2019-11-26] MEDS: ALBUTEROL 0.083% NEBU SOLN 3 ML VIAL NEB SCH ×2 (07:00→11:36)
--- NOTE | 2019-11-26 07:06 | XRay Report ---
XR chest 1V portable CLINICAL HISTORY: pneumothorax pneumothorax COMPARISON STUDY: 11/25/2019 FINDINGS: Slight decrease in size of a left apical pneumothorax. Current maximum pleural separation i s 1.2 cm. This is improved from the prior study. Left-sided chest tube is unchanged in position. Lungs otherwise appear clear. IMPRESSION: Mild improvement of a small left apical pneumothorax. Unchanged position of a left-sided chest tube. ACT 112: Negative or not required by law. The above report was generated using voice recognition software. It may contain grammatical, syntax or spelling errors. Electronically signed by: Michael Kaba M.D. 11/26/2019 7:04 AM
[2019-11-26] MEDS: OXYCODONE HCL IR 5 MG TAB (IMMEDIATE RELEASE) PO PRN ×2 (08:21→12:36)
[2019-11-26] MEDS: LORazepam 0.5 MG TAB PO PRN (09:07)
[2019-11-26] MEDS: FLUTICASONE FUROATE 100MCG 14 PUFFS/INHALER INH SCH (09:07)
[2019-11-26] MEDS: METOPROLOL SUCC 25MG EXT REL TAB PO SCH (09:08)
[2019-11-26] MEDS: UMECLIDINIUM/VILANTEROL 62.5/25MCG 7 PUFFS/INHALER INH SCH (09:08)
[2019-11-26] MEDS: lisinopriL 5 MG TAB PO SCH (09:08)
[2019-11-26] MEDS: DOCUSATE SODIUM 100 MG CAP PO SCH (09:08)
[2019-11-26] MEDS: BuPROPion SR 100 MG TABCR PO SCH (09:08)
[2019-11-26] MEDS: ATORVASTATIN 40 MG TAB PO SCH (09:08)
[2019-11-26] MEDS: DULOXETINE HCL 30 MG CAP PO SCH (09:08)
[2019-11-26] MEDS: PANTOprazole 40 MG TAB PO SCH (09:09)
[2019-11-26] MEDS: FERROUS SULFATE 325 MG TAB PO SCH (09:09)
[2019-11-26] MEDS: predniSONE 10 MG TABLET PO SCH (09:09)
[2019-11-26] MEDS: ENOXAPARIN INJ 40 MG/0.4 ML SYR SQ SCH (09:11)
[2019-11-26] MEDS: INSULIN ASPART 100 UNITS/ML 3 ML PEN SC SCH ×2 (09:11→13:07)
--- NOTE | 2019-11-26 11:16 | XRay Report ---
XR chest 1V portable CLINICAL HISTORY: pneumothorax COMPARISON STUDY: 11/26/2019 6:50 AM FINDINGS: Small residual left apical pneumothorax. This is diminished from 13 to 9 mm in maximum thic kness. All remaining components of the study are unchanged. Left sided chest tube is stable in position. IMPRESSION: Very small left apical pneumothorax diminished from the prior study. ACT 112: Negative or not required by law. The above report was generated using voice recognition software. It may contain grammatical, syntax or spelling errors. Electronically signed by: Michael Kaba M.D. 11/26/2019 11:15 AM
--- NOTE | 2019-11-26 12:30 | XRay Report ---
XR chest 1V portable CLINICAL HISTORY: tube removal COMPARISON STUDY: 11/26/2019 11:01 AM FINDINGS: Small residual left apical pneumothorax post left-sided chest tube removal. Study is otherw ise unchanged. IMPRESSION: 1. Interval removal of left-sided chest tube. 2. Small residual left apical pneumothorax unchanged from the examination earlier same date. ACT 112: Negative or not required by law. The above report was generated using voice recognition software. It may contain grammatical, syntax or spelling errors. Electronically signed by: Michael Kaba M.D. 11/26/2019 12:29 PM
--- NOTE | 2019-11-26 16:04 | Discharge Summary ---
Date of Service November 26, 2019 Admission HPI Per Admitting Provider Jen is a 59-year-old ex-smoker who had a history of breast cancer which was treated many years ago. She quit smoking 3 years ago. She was found to have a hypermetabolic mass in the superior segment of left lower lobe which is grown. We worked her up extensively including pulmonary function studies which show that she is compromised. She is on oxygen but is physically active. She underwent a needle biopsy this mass twice and also underwent a navigational bronchoscopy with biopsy. Unfortunately, we never got a tissue diagnosis. We had wanted to enroll her in a clinical trial comparing sublobar resections to SBRT in patients with compromised lung function however, despite 3 separate biopsies were unable to get tissue which was required for the study. For this reason I elected to proceed with a wedge resection. She will not tolerate a lobectomy but will do a wide resection and perhaps a segmentectomy. To do lymph node dissection. I discussed this in detail with the patient and her family including her mother. I talked about this again today. 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 She is oxygen dependent chronic obstructive pulmonary disease. She is found to have a hypermetabolic mass in her left lower lobe. We biopsied this on 3 separate occasions and was unable to come up with a diagnosis. For this reason I elected to offer her a sublobar resection as she would not tolerate a lobectomy. On 11/22/2019 the patient was brought to the operating room and underwent uncomplicated left thoracoscopy with a resection widely of this mass which turned out to be a non-small cell lung carcinoma. Also biopsied several lymph nodes which were free of metastases. Small air leak in she has markedly compromised lungs so I watched her until today on 11/26/2020 her air leak finally stopped. It was very small but we clamped her tube and her pneumothorax got larger on postop day 3. This reason we kept her clamped and Peter from this morning it did not appear that she was leaking anymore. We removed the chest tube and she looked good. Her incisions are clean. She tolerated it well with ambulating in the hallway. We discharge her home on postop day 4 I will see her back next week with a chest x-ray. The meantime discharge instructions were given as well as medications. Was quite pleased with her. She was a high risk patient due to her hypoxic lung disease.
== END 2019-11-26 16:33 | disposition home or self-care (01) | DRG 164 ==
LOC: ASU 05:43 → 3N 10:06